=== PATIENT | female | born 1970 | race Caucasian/White ===

== ENCOUNTER 2016-07-26 08:56 | Emergency (ER) | payer OTHER ==
[~2016-07-26] VITALS: Ht 162.6 cm; Wt 96.4 kg
[~2016-07-26 08:56] MED LIST: IUD'IUD INT UTER
[2016-07-26 08:59] VITALS: TEMP 36.8; Ht 162.6 cm; Wt 96.4 kg
[2016-07-26 09:34] LABS: URINE APPEARANCE CLEAR (CLEAR); URINE BILIRUBIN NEG (NEG); URINE COLOR YELLOW; URINE NITRITE NEG (NEG); UROBILINOGEN NEG (NEG); ZZUR CULT IF INDIC CLEAN CATCH NO
[2016-07-26 09:38] LABS: MANUAL MICROSCOPIC REQUIRED? NO; REVIEW REQ? NO
[2016-07-26 10:00] LABS: BASO % 0.6 %; BASO ABS # 0.04 K/uL (0-0.2); COMPLETE YES; EOS % 1.1 %; HEMATOCRIT 45.3 % (37-47); IG% 0.3 %; LYMPH % 35.4 %; LYMPH ABS # 2.52 K/uL (1.2-3.4); MEAN CELL VOLUME 90.8 fL (80-100); MEAN CORPUSCULAR HEMOGLOBIN 30.9 pg (25-34); MEAN PLATELET VOLUME 9.3 fL (7.4-10.4); MONO % 6.2 %; NEUT % 56.4 %; PLATELET COUNT 315 K/uL (130-400); RED BLOOD COUNT 4.99 M/uL (4.2-5.4); WHITE BLOOD COUNT 7.12 K/uL (4.8-10.8)
[2016-07-26 10:25] LABS: ALKALINE PHOSPHATASE 73 U/L (45-117); ALT/SGPT 22 U/L (12-78); BLOOD UREA NITROGEN 12 mg/dl (7-18); CALCIUM 8.9 mg/dl (8.5-10.1); CARBON DIOXIDE 24 mmol/L (21-32); CHLORIDE 106 mmol/L (98-107); GLUCOSE 106 mg/dl (70-99); SODIUM 138 mmol/L (136-145)
--- NOTE | 2016-07-26 11:59 | DIAGNOSTIC IMAGING REPORT ---
PELVIC ULTRASOUND CLINICAL HISTORY: Pelvic pain. Check intrauterine device placement. COMPARISON STUDY: None TECHNIQUE: Transabdominal and transvaginal sonography of the pelvis was performed. FINDINGS: The uterus may measures 7.3 x 3 x 2.7 cm. An appropriately positioned IUD is noted. Endometrium measures 5 mm in thickness. A hypoechoic right fundal lesion measuring 3 x 3.3 x 2.8 cm favors a fibroid. The right ovary measures 3.8 x 3.2 x 2.2 cm and the left measures 2.5 x 1.9 x 1.5 cm. A 2.6 cm cystic lesion within the right ovary is noted. This contains no color flow. There is color flow within each ovary. There is no free fluid. IMPRESSION: 1. Appropriately positioned intrauterine device by sonography. 2. 3.3 cm hypoechoic right fundal lesion suggestive of a fibroid. 3. 2.6 cm right ovarian cyst. This is likely benign but a follow-up pelvic ultrasound in 6 weeks to ensure resolution is recommended. Electronically signed by: Fernando Chu M.D. 07/26/2016 11:57 AM Dictated Date/Time: 07/26/2016 11:54 AM
[2016-07-26 12:42] VITALS: BP 133/72; PULSE 95; O2SAT 99
[2016-07-26] MEDS ORDERED: HYDR-5688 PO (12:42)
--- NOTE | 2016-07-26 12:44 | EMERGENCY ROOM VISIT NOTE ---
History First contact with patient: 09:03 Chief Complaint: PELVIC PAIN Stated Complaint: EXTREME PAIN IN PELVIC AREA History of Present Illness The patient is a 46 year old female who presents to the Emergency Room with complaints of pelvic pain. The patient reports that she has had pain in her mid lower abdomen for the past few weeks which has been gradually worsening. She states she is concerned because she has a Mirena IUD. This is her second IUD and she states it was inserted approximately 4 years ago. She has not had any difficulty with it since then. She does not get menstrual periods. She states that the pain is located in the center of her lower abdomen and feels like a stabbing pain. It is constant and she rates it a 6/10. She is not sexually active. She denies any vaginal discharge or bleeding. She denies any urinary symptoms, nausea or vomiting. Review of Systems A complete 10-point Review of Systems was discussed with the patient, with pertinent positives and negatives listed in the History of Present Illness. All remaining Review of Systems questions can be considered negative unless otherwise specified. 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 Vital signs stable. GENERAL: This is a 46-year-old female, in no acute distress, nondiaphoretic, well-developed well-nourished. SKIN: Capillary reflex less than 2 seconds. HEART: Regular rate and rhythm without murmurs gallops or rubs. LUNGS: Clear to auscultation bilaterally without wheezes, rales or rhonchi. ABDOMEN: Positive bowel sounds x 4. Soft, nontender to palpation. PELVIC: External genitalia unremarkable. IUD strings seen. No evidence of cervicitis. No abnormal vaginal discharge. NEURO: Patient was alert and oriented to person place and time. Medical Decision & Procedures ER Provider Diagnostic Interpretation: PELVIC ULTRASOUND CLINICAL HISTORY: Pelvic pain. Check intrauterine device placement. COMPARISON STUDY: None TECHNIQUE: Transabdominal and transvaginal sonography of the pelvis was performed. FINDINGS: The uterus may measures 7.3 x 3 x 2.7 cm. An appropriately positioned IUD is noted. Endometrium measures 5 mm in thickness. A hypoechoic right fundal lesion measuring 3 x 3.3 x 2.8 cm favors a fibroid. The right ovary measures 3.8 x 3.2 x 2.2 cm and the left measures 2.5 x 1.9 x 1.5 cm. A 2.6 cm cystic lesion within the right ovary is noted. This contains no color flow. There is color flow within each ovary. There is no free fluid. IMPRESSION: 1. Appropriately positioned intrauterine device by sonography. 2. 3.3 cm hypoechoic right fundal lesion suggestive of a fibroid. 3. 2.6 cm right ovarian cyst. This is likely benign but a follow-up pelvic ultrasound in 6 weeks to ensure resolution is recommended. Laboratory Results 07/26/16 09:35 Red Blood Count 4.99, Mean Corpuscular Volume 90.8, Mean Corpuscular Hemoglobin 30.9, Mean Corpuscular Hemoglobin Concent 34.0, Mean Platelet Volume 9.3, Neutrophils (%) (Auto) 56.4, Lymphocytes (%) (Auto) 35.4, Monocytes (%) (Auto) 6.2, Eosinophils (%) (Auto) 1.1, Basophils (%) (Auto) 0.6, Neutrophils # (Auto) 4.02, Lymphocytes # (Auto) 2.52, Monocytes # (Auto) 0.44, Eosinophils # (Auto) 0.08, Basophils # (Auto) 0.04 07/26/16 09:35 Test 07/26/16 09:15 07/26/16 09:35 Urine Color YELLOW Urine Appearance CLEAR (CLEAR) Urine pH 5.0 (4.5-7.5) Urine Specific [place] 1.000 (1.000-1.030) Urine Protein NEG (NEG) Urine Glucose (UA) NEG (NEG) Urine Ketones NEG (NEG) Urine Occult Blood NEG (NEG) Urine Nitrite NEG (NEG) Urine Bilirubin NEG (NEG) Urine Urobilinogen NEG (NEG) Urine Leukocyte Esterase NEG (NEG) Urine Test NEG (NEG) White Blood Count 7.12 K/uL (4.8-10.8) Red Blood Count 4.99 M/uL (4.2-5.4) Hemoglobin 15.4 g/dL (12.0-16.0) Hematocrit 45.3 % (37-47) Mean Corpuscular Volume 90.8 fL (80-100) Mean Corpuscular Hemoglobin 30.9 pg (25-34) Mean Corpuscular Hemoglobin Concent 34.0 g/dl (32-36) Platelet Count 315 K/uL (130-400) Mean Platelet Volume 9.3 fL (7.4-10.4) Neutrophils (%) (Auto) 56.4 % Lymphocytes (%) (Auto) 35.4 % Monocytes (%) (Auto) 6.2 % Eosinophils (%) (Auto) 1.1 % Basophils (%) (Auto) 0.6 % Neutrophils # (Auto) 4.02 K/uL (1.4-6.5) Lymphocytes # (Auto) 2.52 K/uL (1.2-3.4) Monocytes # (Auto) 0.44 K/uL (0.11-0.59) Eosinophils # (Auto) 0.08 K/uL (0-0.5) Basophils # (Auto) 0.04 K/uL (0-0.2) RDW Standard Deviation 46.2 fL (36.4-46.3) RDW Coefficient of Variation 13.9 % (11.5-14.5) Immature Granulocyte % (Auto) 0.3 % Immature Granulocyte # (Auto) 0.02 K/uL (0.00-0.02) Anion Gap 8.0 mmol/L (3-11) Est Creatinine Clear Calc Drug Dose 110.8 ml/min Estimated GFR () 118.7 Estimated GFR (Non- 102.5 BUN/Creatinine Ratio 17.0 (10-20) Calcium Level 8.9 mg/dl (8.5-10.1) Total Bilirubin 0.6 mg/dl (0.2-1) Aspartate Amino Transf (AST/SGOT) U/L (15-37) Alanine Aminotransferase (ALT/SGPT) 22 U/L (12-78) Alkaline Phosphatase 73 U/L (45-117) Total Protein 7.7 gm/dl (6.4-8.2) Albumin 3.8 gm/dl (3.4-5.0) Globulin 3.9 gm/dl (2.5-4.0) Albumin/Globulin Ratio 1.0 (0.9-2) Medical Decision Differential diagnosis includes IUD migration, IUD dislodgment, uterine fibroid , ovarian cyst, ovarian torsion, diverticulitis, appendicitis, gastroenteritis, among others. The patient was evaluated as above. Labs were drawn and IV access were obtained. The patient declined analgesics. This is a 46-year-old female who presents complaining of pelvic pain. Pelvic exam did not show any abnormalities. The IUD does not appear to be dislodged. Pelvic ultrasound showed appropriate positioning of the IUD. The patient does have a uterine fibroid which is likely the cause of her symptoms. Labs were unremarkable. The patient was informed that she should follow-up with her primary care provider for further evaluation. She was given a short course of pain medication. She will return for any new/concerning symptoms. She verbalized understanding and was discharged home in good condition. [place] Drug Monitoring Program Search Results: patient reviewed within database, no issues identified Impression Primary Impression: Uterine fibroid Departure Information Dispostion Home / Self-Care Condition GOOD Prescriptions Hydrocodone/Acetaminophen 5MG/325MG ([place] 5MG/325MG) Tab 1-2 TABLET PO Q6H Y for Pain, #15 TAB For Initial Treatment Prov: Aide Denny ., ROEBRT 07/26/16 Referrals Twila Olsen M.D. (PCP) Patient Instructions My [facility] Additional Instructions You have been treated in the Emergency Department for your Abdominal Pain. Laboratory results and imaging studies have ruled out any emergent causes for your abdominal pain which would warrant admission or surgery. Ultrasound did show a uterine fibroid, which is a benign growth on your uterus. You have been prescribed Greenview to be used for pain control. This is a narcotic medication. You cannot drive or consume alcohol while on this medicine. This medicine should only be used for pain that cannot be controlled with over-the- counter pain medicines. For pain control, you can use the following [id number] medicines (if >12 yo): - Regular strength (325mg/tab) Tylenol (acetaminophen) 2 tabs every 4-6 hours as needed. Do not exceed 12 tablets in a 24 hour period. Avoid taking more than 4 grams (4000 mg) of Tylenol per day. This includes any other sources of acetaminophen you may take on a regular basis. - Regular strength (200 mg/tab) Advil (ibuprofen) 1-2 tabs every 4-6 hours as needed. Do not exceed a dose of 3200 mg per day. Drink plenty of water and stay well hydrated. Call EDUCATIONAL/DEVELOPMENT ASSISTANT to schedule a follow-up appointment within 2 weeks. Return to the emergency department if your symptoms persist despite treatment plan outlined above or if you develop any new/concerning symptoms. Problem Qualifiers Primary Impression: Uterine fibroid Uterine leiomyoma location: unspecified location Qualified Codes: D25.9 - Leiomyoma of uterus, unspecified
== END 2016-07-26 13:02 | disposition home or self-care (01) ==
LOC: C.EDB 08:57
DX: D25.9 Leiomyoma of uterus, unspecified (principal); F17.200 Nicotine dependence, unspecified, uncomplicated; Z97.5 Presence of (intrauterine) contraceptive device